=== PATIENT | male | born 1955 | race Caucasian/White ===

== ENCOUNTER → 2017-10-28 | Outpatient (CLI) | payer BC ==
--- NOTE | 2017-10-28 08:28 | DIAGNOSTIC IMAGING REPORT ---
SINUS CT CT DOSE: 610.38 mGy.cm HISTORY: CHRONIC SINUS CONGESTION TECHNIQUE: Multiaxial CT images of the paranasal sinuses were performed and reformatted in the coronal plane without the use of contrast. A dose lowering technique was utilized adhering to the principles of ALARA. COMPARISON: None. FINDINGS: Minimal scattered mucosal thickening seen within the ethmoid air cells, sphenoid sinuses, and bilateral maxillary sinuses. The frontal sinuses are clear. A 5 mm retention cyst within the right maxillary sinus. No fluid levels within the paranasal sinuses. The mastoid air cells are clear. Mild left nasal septal deviation with a small left-sided nasal spur. The bilateral ostiomeatal units are patent. The orbital floors and lamina papyracea are intact. The visualized brain parenchyma is within normal limits. The orbits are unremarkable. IMPRESSION: Minimal chronic sinus thickening. No fluid levels within the paranasal sinuses. 2. Mild left nasal septal deviation. Electronically signed by: José Luis Haddad M.D. 10/28/2017 8:27 AM Dictated Date/Time: 10/28/2017 8:19 AM
== END | disposition home or self-care (01) ==
LOC: C.CTS 08:02
PROVIDERS: ATTEND Family Medicine
DX: J32.0 Chronic maxillary sinusitis (principal)

== ENCOUNTER 2018-03-05 09:45 | Emergency (ER) | payer BC ==
[~2018-03-05] VITALS: Ht 185.4 cm; Wt 84.8 kg
[2018-03-05 10:01] VITALS: TEMP 36.4; Ht 185.4 cm; Wt 84.8 kg
[2018-03-05] MEDS ORDERED: SODIUM CHLORIDE 0.9% 1000ML 1,000 ML IV STA (10:05)
--- NOTE | 2018-03-05 10:06 | EMERGENCY ROOM VISIT NOTE ---
History Report prepared by Michelle: Antonia Rodriguez Under the Supervision of: Dr. Eliezer Graves M.D. First contact with patient: 09:51 Chief Complaint: SYNCOPE Stated Complaint: SYNCOPE History of Present Illness The patient is a 62 year old white male who presents to the ED with a cc of a syncopal episode beginning around 0900 this morning. Positive lightheaded, headache. Negative chest pain, SOB, numbness, weakness, biting his tongue, incontinence, or a history of seizures. He is accompanied by his who reports that he was at a 25 minute Spin Class when he got off the bike and passed out. He states that he fell while standing and hit his elbow. He reports that he barely drank yesterday and only had tea this morning. He states this is the first time he has gone to a spin class but he can run a mile to a mile and a half. He states the ambulance took his blood sugar and it was 114. Source of History: patient, spouse/significant other () Onset: 0900 this morning Position: head, other (upper and lower extremities) Quality: other (syncope) Timing: other (after spin class) Associated Symptoms: + headache, No chest pain, No SOB, No weakness, No numbness Note: Positive lightheadedness. Negative biting his tongue, incontinence, or a history of seizures Review of Systems See HPI for pertinent positives and negatives. A total of ten systems were reviewed and were otherwise negative. Past Medical & Surgical Medical Problems: (1) No significant past medical history No significant past medical history Family History Patient reports no known family medical history. Social History Smokeless Tobacco Use: Unknown Marital Status: Housing Status: lives with significant other Occupation Status: employed Current/Historical Medications Scheduled Antacid (Antacid), Unknown Dose PO DAILY Miscellaneous Medications None (Patient States No Home Meds) Allergies Coded Allergies: No Known Allergies (Unverified , 03/05/18) Physical Exam Vital Signs Date Time Temp Pulse Resp B/P (MAP) Pulse Ox O2 Delivery O2 Flow Rate FiO2 03/05/18 11:29 54 16 144/82 99 03/05/18 11:09 70 12 127/81 100 Room Air 03/05/18 10:03 62 119/74 55 121/78 62 113/85 03/05/18 10:01 36.4 62 18 119/74 95 Room Air 03/05/18 09:55 67 Physical Exam GENERAL: Awake, alert, well-appearing, NAD HENT: Normocephalic, atraumatic. EYES: Normal conjunctiva. Sclera non-icteric. PERRL. No anisocoria. NECK: Supple. No nuchal rigidity. FROM. RESPIRATORY: CTAB, no rhonchi, wheezing, crackles CARDIAC: RRR, no MRG ABDOMEN: Soft, NTND, BS+ MSK: No chest wall TTP, no LE edema NEURO: CN 2-12 intact, 5/5 upper and lower extremity strength, no dysmetria, no drift, good finger to nose, no sensory deficits. Finger count grossly normal. SKIN: No rash or jaundice noted. Medical Decision & Procedures ER Provider Diagnostic Interpretation: Radiology results as stated below per my review and radiologist interpretation: CHEST ONE VIEW PORTABLE HISTORY: 62 years-old Male EVALUATE ALTERED MENTAL STATUS/WEAKNESS acutely altered mental status COMPARISON: Chest radiographs 07/08/2016 TECHNIQUE: Portable AP view of the chest FINDINGS: Cardiomediastinal and hilar silhouettes are within normal limits. No pneumothorax, pleural effusion, focal airspace consolidation or overt pulmonary edema. Suggested nipple shadow overlies the anterior right sixth rib. IMPRESSION: No acute process. The above report was generated using voice recognition software. It may contain grammatical, syntax or spelling errors. Electronically signed by: Braulio Amaya M.D. 03/05/2018 10:29 AM Laboratory Results 03/05/18 10:00 Red Blood Count 4.88, Mean Corpuscular Volume 88.5, Mean Corpuscular Hemoglobin 30.7, Mean Corpuscular Hemoglobin Concent 34.7, Mean Platelet Volume 11.1, Neutrophils (%) (Auto) 54.3, Lymphocytes (%) (Auto) 32.4, Monocytes (%) (Auto) 10.0, Eosinophils (%) (Auto) 2.6, Basophils (%) (Auto) 0.5, Neutrophils # (Auto ) 2.28, Lymphocytes # (Auto) 1.36, Monocytes # (Auto) 0.42, Eosinophils # (Auto ) 0.11, Basophils # (Auto) 0.02 03/05/18 10:00 Test 03/05/18 10:00 White Blood Count 4.20 K/uL (4.8-10.8) Red Blood Count 4.88 M/uL (4.7-6.1) Hemoglobin 15.0 g/dL (14.0-18.0) Hematocrit 43.2 % (42-52) Mean Corpuscular Volume 88.5 fL (80-100) Mean Corpuscular Hemoglobin 30.7 pg (25-34) Mean Corpuscular Hemoglobin Concent 34.7 g/dl (32-36) Platelet Count 182 K/uL (130-400) Mean Platelet Volume 11.1 fL (7.4-10.4) Neutrophils (%) (Auto) 54.3 % Lymphocytes (%) (Auto) 32.4 % Monocytes (%) (Auto) 10.0 % Eosinophils (%) (Auto) 2.6 % Basophils (%) (Auto) 0.5 % Neutrophils # (Auto) 2.28 K/uL (1.4-6.5) Lymphocytes # (Auto) 1.36 K/uL (1.2-3.4) Monocytes # (Auto) 0.42 K/uL (0.11-0.59) Eosinophils # (Auto) 0.11 K/uL (0-0.5) Basophils # (Auto) 0.02 K/uL (0-0.2) RDW Standard Deviation 43.9 fL (36.4-46.3) RDW Coefficient of Variation 13.6 % (11.5-14.5) Immature Granulocyte % (Auto) 0.2 % Immature Granulocyte # (Auto) 0.01 K/uL (0.00-0.02) Anion Gap 11.0 mmol/L (3-11) Est Creatinine Clear Calc Drug Dose 75.6 ml/min Estimated GFR () 79.7 Estimated GFR (Non- 68.8 BUN/Creatinine Ratio 15.7 (10-20) Calcium Level 8.9 mg/dl (8.5-10.1) Phosphorus Level 2.1 mg/dl (2.5-4.9) Magnesium Level 1.9 mg/dl (1.8-2.4) Total Bilirubin 1.2 mg/dl (0.2-1) Direct Bilirubin 0.2 mg/dl (0-0.2) Aspartate Amino Transf (AST/SGOT) 22 U/L (15-37) Alanine Aminotransferase (ALT/SGPT) 24 U/L (12-78) Alkaline Phosphatase 72 U/L (45-117) Troponin I < 0.015 ng/ml (0-0.045) Total Protein 6.9 gm/dl (6.4-8.2) Albumin 3.7 gm/dl (3.4-5.0) Thyroid Stimulating Hormone (TSH) 5.550 uIu/ml (0.300-4.500) Laboratory results reviewed by me Medications Administered Medications (Trade) Dose Ordered Sig/Maria L Route Start Time Stop Time Status Last Admin Dose Admin Sodium Chloride 1,000 ml @ 999 mls/hr Q1H1M STAT IV 03/05/18 10:05 03/05/18 11:05 DC 03/05/18 10:37 999 MLS/HR Potassium/ Phosphorus/Sodium (Phospha 250 Neutral 155-852-130 Mg) 2 tab ONE STAT PO 03/05/18 10:51 03/05/18 10:53 DC 03/05/18 11:07 2 TAB ECG Per My Interpretation Indication: syncope Rate (beats per minute): 57 Rhythm: sinus bradycardia Findings: T-wave inversion (Lead III), no ectopy, other (normal intervals, normal axis, T waves enlarged in the lateral leads) ED Course 0957: The patient was evaluated in room A10. A complete history and physical exam was performed. 1053: I reevaluated the patient. Discussed results and discharge instructions: He verbalized understanding and agreement. The patient is ready for discharge. Medical Decision The patient is a 62 year old white male who presents to the ED with a cc of a syncopal episode beginning around 0900 this morning. Positive lightheaded, headache. Negative chest pain, SOB, numbness, weakness, biting his tongue, incontinence, or a history of seizures. Prior records/ancillary studies reviewed. Triage Nursing notes reviewed. Additional history obtained from the patient's . The patient's history was concerning for syncope. Differential diagnosis: Etiologies such as vasovagal event, infection, hypoglycemia, electrolyte abnormalities, cardiac sources, intracerebral event, toxicologic, neurologic, as well as others were entertained. Patient was seen and evaluated the bedside. Patient did have a brief syncopal episode after a spin class this morning. Patient does not regularly exercise and this was his first by class today. Patient also does note that he has not eaten or drank much in terms of fluid within the last 1-2 days. Patient states he was brief no tongue biting or incontinence. No history of seizures. Patient does not take any blood thinning medications. Patient denies any headache, chest pain, shortness of breath. Patient has a nonfocal neurologic exam. Patient did have blood work completed along with an EKG, troponin, chest x-ray. Patient chest x-ray is clear. Blood work is fairly unremarkable. Patient did have mild elevation in bilirubin. This was explained and he was told just to keep an eye to see if he had any yellowing of the skin or sclera. 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 Patient again denies any abdominal pain I do not believe that this requires further workup at this time. Patient did have a low fossa which was repleted. Patient was told to increase this in his diet. Patient's EKG is nonischemic with a negative troponin. Less likely ACS and there is no overt arrhythmia seen. Less likely PE as the patient's well score is 0. Less likely ACS given that heart score is less than 4. I believe that this brief syncopal episode does not require a CT of the brain either as the patient has a nonfocal neurologic exam does not complain of any headache with a fairly low mechanism as this was just a fall from standing it was very brief. The patient also had some elevated TSH which he was informed of it has had a history of this. Patient was told to have this followed up and to recheck it in the future. Patient was deemed suitable for outpatient follow-up and treatment at this time. Patient was counseled on making sure he eats smaller more frequent meals and make sure that he hydrate liberally with clear liquids. Patient was given strict follow-up, discharge, and return precautions. All questions were answered. Patient was deemed suitable for outpatient follow-up at this time. Patient agreed with the plan of care and was safely discharged home. Medication Reconcilliation Current Medication List: was personally reviewed by me Blood Pressure Screening Patient's blood pressure: Normal blood pressure Blood pressure disposition: Did not require urgent referral Impression Primary Impression: Syncope Additional Impressions: Dehydration Hypophosphatemia Hypothyroidism Scribe Attestation The scribe's documentation has been prepared under my direction and personally reviewed by me in its entirety. I confirm that the note above accurately reflects all work, treatment, procedures, and medical decision making performed by me. Departure Information Dispostion Home / Self-Care Referrals Eliel Brewer M.D. (PCP) Forms HOME CARE DOCUMENTATION FORM, IMPORTANT VISIT INFORMATION Patient Instructions Hypophosphatemia Hemant, [facility], Syncope Additional Instructions Please return to the emergency department if you have worsening or recurrent symptoms not amenable to at-home treatment. Please call for a follow-up appointment with her primary care physician. Please take your medications as prescribed. If you have other concerns and/or complaints please feel free to also call your primary care physician's office or return the ED for further evaluation, management, and treatment. You may take 800 mg Ibuprofen every 6 hours as needed for pain/fever with food unless told by your physician not to take NSAIDs. You may take tylenol 1000 mg every 6 hours as needed for pain/fever unless told by your physician to not take it or have liver problems. You may take motrin and tylenol separately or at the same time. Take your medications as prescribed. If taking an antibiotic consider taking a probiotic and/or eating yogurt, but at the least, please take with food as it can cause upset stomach. As discussed your bilirubin was tracely elevated. Please monitor for yellowing of the skin or white cell the eyes. As discussed your thyroid-stimulating hormone was elevated today. Please make sure that you schedule a follow-up appointment have this rechecked. Please make sure that you eat smaller more frequent meals and hydrate liberally with clear liquids and avoid any alcohol. You have been examined and treated today on an emergency basis only. This is not a substitute for, or an effort to provide, complete comprehensive medical care. It is impossible to recognize and treat all injuries or illnesses in a single emergency department visit. It is therefore important that you follow up closely with [facility], your PCP, and/or your specialist(s). Call as soon as possible for an appointment. Thank you for your time and consideration. I look forward to speaking with you again soon. Please don't hesitate to call us if you have any questions. Problem Qualifiers Primary Impression: Syncope Syncope type: unspecified Qualified Codes: R55 - Syncope and collapse Additional Impressions: Hypothyroidism Hypothyroidism type: unspecified Qualified Codes: E03.9 - Hypothyroidism, unspecified
[2018-03-05 10:12] LABS: BASO % 0.5 %; BASO ABS # 0.02 K/uL (0-0.2); EOS % 2.6 %; EOS ABS # 0.11 K/uL (0-0.5); HEMATOCRIT 43.2 % (42-52); IG# 0.01 K/uL (0.00-0.02); LYMPH % 32.4 %; LYMPH ABS # 1.36 K/uL (1.2-3.4); MEAN CELL VOLUME 88.5 fL (80-100); MEAN CORPUSCULAR HEMOGLOBIN 30.7 pg (25-34); MEAN CORPUSCULAR HGB CONC 34.7 g/dl (32-36); MEAN PLATELET VOLUME 11.1 fL (7.4-10.4); MONO ABS # 0.42 K/uL (0.11-0.59); NEUT % 54.3 %; NEUT ABS # 2.28 K/uL (1.4-6.5); PLATELET COUNT 182 K/uL (130-400); RED CELL DISTRIBUTION WIDTH CV 13.6 % (11.5-14.5); RED CELL DISTRIBUTION WIDTH SD 43.9 fL (36.4-46.3)
[2018-03-05] MEDS ORDERED: ANT PO (10:17)
--- NOTE | 2018-03-05 10:30 | DIAGNOSTIC IMAGING REPORT ---
CHEST ONE VIEW PORTABLE HISTORY: 62 years-old Male EVALUATE ALTERED MENTAL STATUS/WEAKNESS acutely altered mental status COMPARISON: Chest radiographs 07/08/2016 TECHNIQUE: Portable AP view of the chest FINDINGS: Cardiomediastinal and hilar silhouettes are within normal limits. No pneumothorax, pleural effusion, focal airspace consolidation or overt pulmonary edema. Suggested nipple shadow overlies the anterior right sixth rib. IMPRESSION: No acute process. The above report was generated using voice recognition software. It may contain grammatical, syntax or spelling errors. Electronically signed by: Braulio Amaya M.D. 03/05/2018 10:29 AM Dictated Date/Time: 03/05/2018 10:27 AM
[2018-03-05 10:40] LABS: ALBUMIN 3.7 gm/dl (3.4-5.0); ALKALINE PHOSPHATASE 72 U/L (45-117); ALT/SGPT 24 U/L (12-78); AST/SGOT 22 U/L (15-37); BLOOD UREA NITROGEN 18 mg/dl (7-18); CALCIUM 8.9 mg/dl (8.5-10.1); CARBON DIOXIDE 23 mmol/L (21-32); CREATININE 1.13 mg/dl (0.60-1.40); GLUCOSE 116 mg/dl (70-99); PHOSPHORUS 2.1 mg/dl (2.5-4.9); POTASSIUM 3.9 mmol/L (3.5-5.1); SODIUM 141 mmol/L (136-145); TOTAL PROTEIN 6.9 gm/dl (6.4-8.2)
[2018-03-05] MEDS ORDERED: POT PHOSPHATE MONOBASIC W/ SOD TAB PO STA (10:51)
[2018-03-05 11:29] VITALS: BP 144/82; PULSE 54; O2SAT 99
== END 2018-03-05 11:28 | disposition home or self-care (01) ==
LOC: EDBD 09:45 → C.EDA 09:48
DX: R55 Syncope and collapse (principal); E86.0 Dehydration; E03.9 Hypothyroidism, unspecified; E83.39 Other disorders of phosphorus metabolism